=== PATIENT | female | born 1990 | race Caucasian/White ===

== ENCOUNTER 2016-10-30 12:55 | Emergency (ER) | payer MEDICAID ==
[~2016-10-30] VITALS: Ht 167.6 cm; Wt 77.3 kg
[~2016-10-30 12:55] MED LIST: FLEXERIL 1010 MG/TAB PO; MELAT3MGTAB PO; NEXPLANON68 MG ID; NORCO 325 MG-51 TAB PO; PRENATAL1 TA3 PO; ULTRAM 50MG TAB50 MG PO
[2016-10-30 12:56] VITALS: BP 118/71; TEMP 99.1
[2016-10-30] MEDS ORDERED: AMOXICILLIN 50500 MG PO (13:27)
[2016-10-30 14:03] VITALS: PULSE 79
== END 2016-10-30 14:05 | disposition home or self-care (01) ==
LOC: COL.ER 12:55
DX: J02.9 Acute pharyngitis, unspecified (principal); F17.210 Nicotine dependence, cigarettes, uncomplicated

== ENCOUNTER 2017-08-01 17:17 | Emergency (ER) | payer BC ==
[~2017-08-01] VITALS: Ht 167.6 cm; Wt 82.7 kg
[~2017-08-01 17:17] MED LIST changes: +AMOXICILLIN 50500 MG PO
[2017-08-01 17:42] VITALS: BP 120/72; TEMP 100.6
[2017-08-01] MEDS ORDERED: NEXPLANON68 MG ID (17:45)
[2017-08-01] MEDS ORDERED: CYMBALTA 60MG60 MG PO (17:45)
[2017-08-01] MEDS ORDERED: FLEXERIL 1010 MG/TAB PO (17:45)
[2017-08-01] MEDS ORDERED: TAMIFLU 75MG75 MG PO (19:12)
[2017-08-01 19:26] VITALS: PULSE 87
== END 2017-08-01 19:30 | disposition home or self-care (01) ==
LOC: COL.ER 17:17
DX: J10.1 Influenza due to other identified influenza virus with other respiratory manifestations (principal); F41.9 Anxiety disorder, unspecified; F17.210 Nicotine dependence, cigarettes, uncomplicated